=== PATIENT | female | born 1940 | race African-American/Black ===

== ENCOUNTER 2016-08-14 04:57 | Emergency (ER) | payer MEDICARE, OTHER ==
[2016-08-14] MEDS ORDERED: OPTIRAY 350 100 ML VIAL HMH IV ONE (04:58)
[2016-08-14] MEDS ORDERED: ONDANSETRON 4 MG VIAL ONE (06:46)
[2016-08-14] MEDS ORDERED: MORPHINE 2 MG/ML SYR ONE (06:47)
[2016-08-14] MEDS ORDERED: SODIUM CHLORIDE 0.9% 1,000 ML ONE (06:54)
== END 2016-08-14 09:11 | disposition home or self-care (01) ==
LOC: ER 04:57
CPT/HCPCS: 36415 ×2; 74177 ×2; 80053 ×2; 81001 ×2; 82553 ×2; 83690 ×2; 84484 ×2; 84703 ×2; 85025 ×2; 87088 ×2; 93005 ×2; 96361 ×2; 96374 ×2; 96375 ×2; 99284; J2405; Q9967